=== PATIENT | female | born 1995 | race Caucasian/White ===

== ENCOUNTER 2019-11-06 12:29 | Outpatient (CLI) | payer OTHER ==
[2019-11-06 13:33] LABS: APPEARANCE,URINE CLEAR; BILIRUBIN,URINE NEGATIVE (NEGATIVE); COLOR,URINE YELLOW; GLUCOSE, URINE NEGATIVE (NEGATIVE); KETONES,URINE NEGATIVE (NEGATIVE); LEUKOCYTE ESTERASE,URINE NEGATIVE (NEGATIVE); NITRITE,URINE NEGATIVE (NEGATIVE); PROTEIN,URINE NEGATIVE (NEGATIVE); URINE SPECIFIC GRAVITY 1.009; UROBILINOGEN,URINE NEGATIVE mg/dL (<2.0)
[2019-11-06 13:55] LABS: URINE AMPHETAMINES SCREEN NEGATIVE; URINE BARBITURATES SCREEN NEGATIVE; URINE BENZODIAZEPINES SCREEN NEGATIVE; URINE COCAINE SCREEN NEGATIVE; URINE MARIJUANA (THC) SCREEN NEGATIVE; URINE METHADONE SCREEN NEGATIVE; URINE PHENCYCLIDINE SCREEN NEGATIVE
== END 2019-11-06 13:40 | disposition home or self-care (01) ==
LOC: LC 12:29
PROVIDERS: ATTEND Obstetrics & Gynecology
PROC: 4A1HXCZ Monitoring of Products of Conception, Cardiac Rate, External Approach (ICD-10-PCS; principal; 2019-11-06)
DX: O36.8130 Decreased fetal movements, third trimester, not applicable or unspecified (principal); Z3A.36 36 weeks gestation of pregnancy
CPT/HCPCS: 59025; 80307; 81001

== ENCOUNTER 2019-11-22 04:52 | Inpatient (IN) | payer OTHER ==
[2019-11-15 11:47] LABS: ABSOLUTE EOSINOPHILS # (AUTO) 0.1 10^3/uL (0.0-0.6); ABSOLUTE LYMPHOCYTES (AUTO) 2.2 10^3/uL (0.5-4.7); ABSOLUTE MONOCYTES (AUTO) 0.6 10^3/uL (0.1-1.4); ABSOLUTE NEUT (AUTO) 8.1 10^3/uL (1.7-8.2); BASOPHILS % (AUTO) 0.3 % (0-2); EOSINOPHILS % (AUTO) 1.2 % (0-6); HEMATOCRIT 29.2 % (36.0-47.0); HEMOGLOBIN 9.3 g/dL (12.0-15.5); LYMPHOCYTES % (AUTO) 20.1 % (13-45); MEAN CORPUSCULAR HEMOGLOBIN 22.3 pg (27.0-33.4); MEAN CORPUSCULAR HGB CONC 31.8 g/dL (32.0-36.0); MEAN CORPUSCULAR VOLUME 70 fl (80-97); MONOCYTES % (AUTO) 5.4 % (3-13); PLATELET COUNT 367 10^3/uL (150-450); RED BLOOD COUNT 4.15 10^6/uL (3.72-5.28); RED CELL DISTRIBUTION WIDTH 16.2 % (11.5-14.0); TOTAL CELLS COUNTED % (AUTO) 100 %; WHITE BLOOD COUNT 11.1 10^3/uL (4.0-10.5)
[2019-11-15 11:54] LABS: APPEARANCE,URINE SLIGHTLY-CLOUDY; BILIRUBIN,URINE NEGATIVE (NEGATIVE); COLOR,URINE YELLOW; GLUCOSE, URINE NEGATIVE (NEGATIVE); KETONES,URINE NEGATIVE (NEGATIVE); LEUKOCYTE ESTERASE,URINE TRACE (NEGATIVE); NITRITE,URINE NEGATIVE (NEGATIVE); PROTEIN,URINE NEGATIVE (NEGATIVE); URINE SPECIFIC GRAVITY 1.016; UROBILINOGEN,URINE NEGATIVE mg/dL (<2.0)
[2019-11-15 12:23] LABS: URINE AMPHETAMINES SCREEN NEGATIVE; URINE BARBITURATES SCREEN NEGATIVE; URINE BENZODIAZEPINES SCREEN NEGATIVE; URINE COCAINE SCREEN NEGATIVE; URINE MARIJUANA (THC) SCREEN NEGATIVE; URINE METHADONE SCREEN NEGATIVE; URINE PHENCYCLIDINE SCREEN NEGATIVE
[2019-11-22] MEDS ORDERED: CEFAZOLIN 2 GM/D5W RTU 2 GM/50 ML RTUPB IV PRN (05:28)
[2019-11-22] MEDS ORDERED: RINGERS SOLUTION,LACTATED 1,000 ML IV ONE (05:30)
[2019-11-22] MEDS ORDERED: FENTANYL CITRATE INJ/PF 100 MCG/2 ML AMPUL ONE (06:19)
[2019-11-22] MEDS ORDERED: MIDAZOLAM 2 MG/2 ML INJ ONE (06:19)
[2019-11-22] MEDS ORDERED: OXYTOCIN 10 UNIT/ML VIAL ONE (06:19)
[2019-11-22] MEDS ORDERED: EPHEDRINE SULFATE INJ 50 MG/1 ML AMPULE ONE (06:20)
[2019-11-22] MEDS ORDERED: ONDANSETRON HCL INJ/PF 4 MG/2 ML SDV ONE (06:20)
[2019-11-22] MEDS ORDERED: PROPOFOL INJ 200 MG/20 ML VIAL IV ONE (06:20)
[2019-11-22] MEDS ORDERED: LIDOCAINE 0.5% INJ-PF (5 MG/ML) 50 ML SDV ONE (06:24)
[2019-11-22] MEDS ORDERED: PHENYLEPHRINE HCL INJ/PF 10 MG/1 ML SDV ONE (06:43)
[2019-11-22] MEDS ORDERED: OXYTOCIN/NORMAL SALINE 20 UNIT/1,000 ML RTUINJ ONE (06:43)
[2019-11-22] MEDS ORDERED: CEFTRIAXONE 2 GM/D5W RTU 0 GM/0 ML RTUPB IV ONE (06:55)
[2019-11-22] MEDS ORDERED: ONDANSETRON HCL INJ/PF 4 MG/2 ML SDV IV PRN ×2 (06:57→13:27)
[2019-11-22] MEDS ORDERED: FENTANYL CITRATE INJ/PF 100 MCG/2 ML AMPUL IV PRN ×3 (06:57)
[2019-11-22] MEDS ORDERED: DIPHENHYDRAMINE HCL 50 MG/ML VIAL IV PRN (06:57)
[2019-11-22] MEDS ORDERED: PROMETHAZINE HCL INJ 25 MG/1 ML VIAL IV PRN ×3 (06:57→09:07)
[2019-11-22] MEDS ORDERED: MEPERIDINE HCL/PF INJ 25 MG/1 ML DISP.SYRIN IV PRN (06:57)
[2019-11-22] MEDS ORDERED: MORPHINE SULFATE 10 MG/ML INJ IV PRN (06:57)
[2019-11-22] MEDS ORDERED: CEFAZOLIN 1 GM/D5W RTU 2 GM/100 ML RTUPB IV ONE (06:58)
[2019-11-22] MEDS ORDERED: RINGERS SOLUTION,LACTATED 1,000 ML IV PRN (09:07)
[2019-11-22] MEDS ORDERED: ACETAMINOPHEN 325 MG TABLET PO PRN (09:07)
[2019-11-22] MEDS ORDERED: OXYTOCIN/NORMAL SALINE 20 UNIT/1,000 ML RTUINJ IV PRN (09:07)
[2019-11-22] MEDS ORDERED: SIMETHICONE 80 MG TAB.CHEW PO PRN (09:07)
[2019-11-22] MEDS ORDERED: DIPH/PERTUSS(ACELL)/TETANUS VAC/PF 0.5 ML SYR (>=10YO) IM PRN (09:07)
[2019-11-22] MEDS ORDERED: MEASLES,MUMPS&RUBELLA VACC/PF 0.5 ML VIAL SUBCUT PRN (09:07)
[2019-11-22] MEDS ORDERED: ACETAMINOPHEN 1,000 MG/100 ML RTUPB IV PRN (09:07)
[2019-11-22] MEDS ORDERED: HYDROMORPHONE HCL INJ/PF 2 MG/ML AMPULE IV PRN (09:07)
--- NOTE | 2019-11-22 09:11 | Operative Report ---
Operative Report DATE OF SURGERY: 11/22/19 PREOPERATIVE DIAGNOSIS: Patient is presenting for repeat and tubal li gation POSTOPERATIVE DIAGNOSIS: Same OPERATION: Repeat via low transverse uterine incision tubal ligation using Filshie clips SURGEON: MARILEE ALAMO ANESTHESIA: Spinal TISSUE REMOVED OR ALTERED: Placenta COMPLICATIONS: None ESTIMATED BLOOD LOSS: 250 INTRAOPERATIVE FINDINGS: Scarring at the low uterine segment noted otherwise normal uterus tubes ovaries. Viable male . PROCEDURE: Patient was taken to the OR and placed in supine position after her spinal anesthesia. She is prepared and draped in sterile fashion. Gr was placed for drainage of the bladder. Low transverse incision was made and carried down the level of the fascia. The fascial incision was made with knife and extended bilaterally with curved Guillen scissors. The fascia was off the rectus muscles using sharp and blunt dissection. There was some dense scarring at this area. The rectus muscles are in the midline. The peritoneum was entered without incident. Bladder blade was placed in uterine segment was identified. A low transverse incision was made creating a bladder flap. Bladder blade was placed low transverse uterine incision was made with the knife and extended with fingertips. The baby was delivered with some fundal pressure. Mouth and nose were suctioned free. The cord is doubly clamped and cut. Baby is passed off to the repairer kiln car in attendance. The placenta was manually extracted with trailing membranes. The uterus was externalized wrapped in a moist lap sponge. Uterine contents wiped free. Uterus was closed with a runni ng locking layer of 0 chromic suture using the second layer to imbricate the first completing a double layer closure of the uterus. The serosa was closed with a running 2-0 chromic stitch. Filshie clips were placed on the mid isthmic portion of each fallopian tube. The pelvis was irrigated and suctioned free of fluid the uterus was replaced in the abdomen. The abdominal wall peritoneum was closed with running 2-0 chromic stitch. Fascia was closed with a running 0 Vicryl in 2 segments. Teri's layer was brought together with 0 plain gut stitch and the skin was closed with running subcuticular 4-0 undyed Vicryl stitch. The wound was dressed mother and baby did well.
[2019-11-22] MEDS ORDERED: MORPHINE SULFATE 10 MG/ML INJ ONE (09:36)
[2019-11-22] MEDS ORDERED: ACETAMINOPHEN 1,000 MG/100 ML RTUPB IV ONE (09:36)
[2019-11-22] MEDS ORDERED: MEPERIDINE HCL/PF INJ 25 MG/1 ML DISP.SYRIN ONE (09:46)
[2019-11-22] MEDS: PRENATAL VITAMIN W DHA CAPSULE PO SCH (10:27)
[2019-11-22] MEDS: DOCUSATE SODIUM 100 MG CAPSULE PO SCH ×2 (10:27→17:27)
[2019-11-22] MEDS ORDERED: HYDROMORPHONE HCL INJ/PF 2 MG/ML AMPULE ONE (10:33)
[2019-11-22] MEDS ORDERED: IBUPROFEN 800 MG TABLET PO SCH (12:00)
[2019-11-22] MEDS: KETOROLAC TROMETHAMINE INJ/PF 30 MG/1 ML SDV IV SCH ×2 (14:24→21:11)
[2019-11-22] MEDS: OXYCODONE-ACETAMINOPHEN 5-325 MG TABLET PO PRN ×2 (18:19→20:20)
[2019-11-23] MEDS: OXYCODONE-ACETAMINOPHEN 5-325 MG TABLET PO PRN ×4 (02:29→20:15)
[2019-11-23] MEDS ORDERED: LACTATED RINGERS 1000 ML IV PRN (05:00)
[2019-11-23] MEDS ORDERED: LIDOCAINE 0.5% INJ-PF (5 MG/ML) 50 ML SDV SUBCUT PRN (05:00)
[2019-11-23] MEDS: KETOROLAC TROMETHAMINE INJ/PF 30 MG/1 ML SDV IV SCH (05:12)
[2019-11-23 06:33] LABS: HEMATOCRIT 26.4 % (36.0-47.0); HEMOGLOBIN 8.3 g/dL (12.0-15.5); MEAN CORPUSCULAR HEMOGLOBIN 21.7 pg (27.0-33.4); MEAN CORPUSCULAR HGB CONC 31.5 g/dL (32.0-36.0); MEAN CORPUSCULAR VOLUME 69 fl (80-97); PLATELET COUNT 285 10^3/uL (150-450); RED BLOOD COUNT 3.84 10^6/uL (3.72-5.28); RED CELL DISTRIBUTION WIDTH 16.7 % (11.5-14.0); WHITE BLOOD COUNT 15.7 10^3/uL (4.0-10.5)
[2019-11-23] MEDS: DOCUSATE SODIUM 100 MG CAPSULE PO SCH ×2 (10:06→17:43)
[2019-11-23] MEDS: PRENATAL VITAMIN W DHA CAPSULE PO SCH (10:06)
--- NOTE | 2019-11-23 11:05 | PDOC PROGRESS REPORT ---
Subjective-OB Progress Note for:: 11/23/19 - POD #1, pt doing well, no complaints. s/p Rpt C- section w/ BTL. B+ Rubella Immune. up voiding Physical Exam (OB) Vital Signs: Temp Pulse Resp BP Pulse Ox 97.2 F 83 18 112/58 L 99 11/23/19 07:36 11/23/19 07:36 11/23/19 04:14 11/23/19 07:36 11/23/19 07:36 Intake & Output 11/22/19 11/23/19 11/24/19 06:59 06:59 06:59 Intake Total 480 260 Output Total 4500 Balance -4020 260 Weight 81.193 kg - General General Appearance: Appears well, Alert In distress: None - PIH/Pre-Eclampsia Headache: Absent Epigastric Pain: No Visual Changes: No - Dressing Removed: No Incision: Dressing Closure Type: opsite - Lochia Lochia Amount: Scant < 10 ml Lochia Color: Rubra/Red - Abdomen Description: Tender, Soft Hernia Present: No Fundal Description: Firm, Midline Fundal Height: u/u - u/2 - Respiratory Respiratory Status: No respiratory distress Breath sounds: Clear - Cardiovascular Rhythm: Regular Heart Sounds: Normal auscultation - Abdominal Distension: No distension Tenderness: Nontender - Genitourinary Genitourinary Note: voiding - Extremities Upper extremity: Normal inspection Lower extremities: Normal inspection - Neurological Cognition: Normal Orientation: AAOx4 Objective-Diagnostic Laboratory: 11/23/19 06:17 11/23/19 06:17 WBC 15.7 H RBC 3.84 Hgb 8.3 L Hct 26.4 L MCV 69 L MCH 21.7 L MCHC 31.5 L RDW 16.7 H Plt Count 285 Assessment and Plan(PN) - Assessment and Plan (1) S/P repeat low transverse Is this a current diagnosis for this admission?: Yes (2) Tubal ligation status Is this a current diagnosis for this admission?: Yes (3) Acute blood loss as cause of postoperative anemia Is this a current diagnosis for this admission?: Yes Plan:: Routine PP orders, give IV Iron today, ambulation encouraged - Time Spent with Patient Time with patient: Less than 15 minutes Medications reviewed and adjusted accordingly: Yes - Disposition Anticipated Discharge: Home Within: within 48 hours
[2019-11-23] MEDS ORDERED: IRON SUCROSE COMPLEX INJ/PF 100 MG/5 ML SDV IV ONE (11:30)
[2019-11-23] MEDS: IBUPROFEN 800 MG TABLET PO SCH ×2 (11:42→17:39)
[2019-11-24] MEDS: IBUPROFEN 800 MG TABLET PO SCH ×3 (05:36→13:12)
[2019-11-24] MEDS: OXYCODONE-ACETAMINOPHEN 5-325 MG TABLET PO PRN ×2 (05:40→13:12)
[2019-11-24] MEDS: DOCUSATE SODIUM 100 MG CAPSULE PO SCH (09:44)
[2019-11-24] MEDS: PRENATAL VITAMIN W DHA CAPSULE PO SCH (09:47)
[2019-11-24] MEDS ORDERED: FERROUS SULFATE 325 MG TABLET PO SCH (10:00)
--- NOTE | 2019-11-24 10:55 | PDOC DISCHARGE SUMMARY ---
Impression - Admit/DC Date/PCP Admission Date/Primary Care Provider: 11/22/19 04:52 MARILEE ALAMO MD Discharge Date: 11/24/19 - POD #2, doing well, desires to go home today - Discharge Diagnosis (1) S/P repeat low transverse Is this a current diagnosis for this admission?: Yes (2) Tubal ligation status Is this a current diagnosis for this admission?: Yes (3) Acute blood loss as cause of postoperative anemia Is this a current diagnosis for this admission?: Yes - Additional Information Resuscitation Status: Full Code Discharge Diet: As Tolerated, Regular Discharge Activity: Activity As Tolerated, No Driving, No Lifting Over 10 Pounds, Pelvic Rest [facility] [Provider [facility]] Prescriptions: Ibuprofen [Motrin 800 mg Tablet] 800 mg PO Q6 #60 tablet Oxycodone HCl/Acetaminophen [Percocet 5-325 mg Tablet] 1 tab PO Q4HP PRN #30 tablet PRN Reason: Pain Scale Of 4 Home Medications: Iron,Carb/Vit C/Vit B12/Folic [Iron 100 Plus Tablet] 1 each PO DAILY 11/15/19 Prenat 115/Iron Fum/Folic/Dss [ 19 Tablet] 1 each PO DAILY 11/15/19 Ibuprofen [Motrin 800 mg Tablet] 800 mg PO Q6 #60 tablet 11/24/19 Oxycodone HCl/Acetaminophen [Percocet 5-325 mg Tablet] 1 tab PO Q4HP PRN #30 tablet 11/24/19 HPI Reason(s) for Admission: Ceasarean Section-Repeat Intrapartum Procedure(s): : Low Cervical, Transverse, Tubal Ligation Hospital Course Hospital Course: routine Results Laboratory Results: WBC 15.7 10^3/uL (4.0-10.5) H 11/23/19 06:17 RBC 3.84 10^6/uL (3.72-5.28) 11/23/19 06:17 Hgb 8.3 g/dL (12.0-15.5) L 11/23/19 06:17 Hct 26.4 % (36.0-47.0) L 11/23/19 06:17 MCV 69 fl (80-97) L 11/23/19 06:17 MCH 21.7 pg (27.0-33.4) L 11/23/19 06:17 MCHC 31.5 g/dL (32.0-36.0) L 11/23/19 06:17 RDW 16.7 % (11.5-14.0) H 11/23/19 06:17 Plt Count 285 10^3/uL (150-450) 11/23/19 06:17 Lymph % (Auto) 20.1 % (13-45) 11/15/19 11:15 Sanders % (Auto) 5.4 % (3-13) 11/15/19 11:15 Eos % (Auto) 1.2 % (0-6) 11/15/19 11:15 Baso % (Auto) 0.3 % (0-2) 11/15/19 11:15 Absolute Neuts (auto) 8.1 10^3/uL (1.7-8.2) 11/15/19 11:15 Absolute Lymphs (auto) 2.2 10^3/uL (0.5-4.7) 11/15/19 11:15 Absolute Monos (auto) 0.6 10^3/uL (0.1-1.4) 11/15/19 11:15 Absolute Eos (auto) 0.1 10^3/uL (0.0-0.6) 11/15/19 11:15 Absolute Basos (auto) 0.0 10^3/uL (0.0-0.2) 11/15/19 11:15 Seg Neutrophils % 73.0 % (42-78) 11/15/19 11:15 Urine Color YELLOW 11/15/19 11:05 Urine Appearance SLIGHTLY-CLOUDY 11/15/19 11:05 Urine pH 6.0 (5.0-9.0) 11/15/19 11:05 Ur Specific [place] 1.016 11/15/19 11:05 Urine Protein NEGATIVE mg/dL (NEGATIVE) 11/15/19 11:05 Urine Glucose (UA) NEGATIVE mg/dL (NEGATIVE) 11/15/19 11:05 Urine Ketones NEGATIVE mg/dL (NEGATIVE) 11/15/19 11:05 Urine Blood NEGATIVE (NEGATIVE) 11/15/19 11:05 Urine Nitrite NEGATIVE (NEGATIVE) 11/15/19 11:05 Urine Bilirubin NEGATIVE (NEGATIVE) 11/15/19 11:05 Urine Urobilinogen NEGATIVE mg/dL (<2.0) 11/15/19 11:05 Ur Leukocyte Esterase TRACE (NEGATIVE) H 11/15/19 11:05 Urine WBC (Auto) 1 /HPF 11/15/19 11:05 Urine RBC (Auto) 0 /HPF 11/15/19 11:05 Urine Bacteria (Auto) TRACE /HPF 11/15/19 11:05 Squamous Epi Cells Auto 2 /HPF 11/15/19 11:05 Urine Mucus (Auto) FEW /LPF 11/15/19 11:05 Urine Ascorbic Acid NEGATIVE (NEGATIVE) 11/15/19 11:05 Urine Opiates Screen NEGATIVE 11/15/19 11:05 Urine Methadone Screen NEGATIVE 11/15/19 11:05 Ur Barbiturates Screen NEGATIVE 11/15/19 11:05 Ur Phencyclidine Scrn NEGATIVE 11/15/19 11:05 Ur Amphetamines Screen NEGATIVE 11/15/19 11:05 U Benzodiazepines Scrn NEGATIVE 11/15/19 11:05 Urine Cocaine Screen NEGATIVE 11/15/19 11:05 U Marijuana (THC) Screen NEGATIVE 11/15/19 11:05 Blood Type B POSITIVE 11/21/19 14:45 Antibody Screen NEGATIVE 11/21/19 14:45 Plan Plan of Treatment: d/c to home, F/up with [facility] in one week for incision check
[2019-11-24 11:27] VITALS: BP 103/60
== END 2019-11-24 13:35 | disposition home or self-care (01) | DRG 785 ==
LOC: 2S 04:52
PROVIDERS: ADMIT Obstetrics & Gynecology; ATTEND Obstetrics & Gynecology
PROC: 0UL70CZ Occlusion of Bilateral Fallopian Tubes with Extraluminal Device, Open Approach (ICD-10-PCS; 2019-11-22)
PROC: 10D00Z1 Extraction of Products of Conception, Low, Open Approach (ICD-10-PCS; principal; 2019-11-22 07:45)
DX: O34.211 Maternal care for low transverse scar from previous cesarean delivery (principal); O99.02 Anemia complicating childbirth; Z30.2 Encounter for sterilization; Z37.0 Single live birth; D64.9 Anemia, unspecified; O99.334 Smoking (tobacco) complicating childbirth; F17.200 Nicotine dependence, unspecified, uncomplicated
CPT/HCPCS: 36415; 59025; 80307; 81001; 85025; 85027; 86850; 86900; 86901; 94799; J0131; J1170; J1885; J2175; J2250; J2270; J2370; J2405; J2590; J2704; J3010; J3490; J7120

== ENCOUNTER 2019-12-16 01:55 | Emergency (ER) | payer OTHER ==
[2019-12-16] MEDS ORDERED: IBUPROFEN 600 MG TABLET PO ONE (02:50)
[2019-12-16] MEDS ORDERED: ACETAMINOPHEN 325 MG TABLET PO ONE (02:50)
[2019-12-16] MEDS ORDERED: NORMAL SALINE 1000 ML 1,000 ML IV ONE ×2 (02:51→05:38)
[2019-12-16] MEDS ORDERED: ONDANSETRON HCL INJ/PF 4 MG/2 ML SDV IV ONE (02:51)
--- NOTE | 2019-12-16 02:55 | ER Document Report ---
ED General - General Chief Complaint: Post Surgical Pain Stated Complaint: POST OP PAIN/BLEEDING/NAUSEA Time Seen by Provider: 12/16/19 02:38 Primary Care Provider: MARILEE TERESA MD [ACTIVE STAFF] - 12/18/19 Notes: Patient is a 24-year-old female that comes emergency department for chief complaint of left-sided breast pain, she states that her left breast feels swollen, hot, and very tender, this is worsened over the past day, she is also developed chills and feels like she has been running a fever tonight. Patient also reports burning and discomfort with urination. She does report nausea but denies vomiting. She also reports generalized body aches and pain with cramping over to the lower abdomen. She also states that over the past day she started bleeding again, going through 3 pads over the day. Patient is 3 weeks postop C- section with Dr. Tony Teresa, currently breast-feeding. She denies dizziness, chest pain, shortness of breath, abnormal discharge from the breast, abnormal discharge or heavy bleeding from the postop wound. TRAVEL OUTSIDE OF THE [place] IN LAST 30 DAYS: No - Related Data Allergies/Adverse Reactions: No Known Allergies Allergy (Unverified 11/06/19 12:43) Home Medications: prenatals. capsules Past Medical History - General Information source: Patient - Social History Smoking Status: Current Every Day Smoker Frequency of alcohol use: None Drug Abuse: None Lives with: Family Family History: Reviewed & Not Pertinent Patient has suicidal ideation: No Patient has homicidal ideation: No - Past Medical History Cardiac Medical History: Denies: Hx Hypertension, Hx Pulmonary Embolism, Hx Heart Murmur Pulmonary Medical History: Denies: Hx Asthma, Hx Sleep Apnea, Hx Tuberculosis Endocrine Medical History: Denies: Hx Hyperthyroidism, Hx Hypothyroidism Renal/ Medical History: Denies: Hx Kidney Stones, Hx Ovarian Cysts, Hx Pelvic Inflammatory Disease Malignancy Medical History: Denies: Hx Breast Cancer, Hx Cervical Cancer, Hx Ovarian Cancer GI Medical History: Reports: Hx Gastroesophageal Reflux Disease - . Denies: Hx Hiatal Hernia, Hx Ulcer Musculoskeletal Medical History: Denies Hx Fibromyalgia Psychiatric Medical History: Denies: Hx Bipolar Disorder, Hx Depression, Hx Post Traumatic Stress Disorder, Hx Schizophrenia Traumatic Medical History: Denies: Hx Fractures Infectious Medical History: Denies: Hx HIV Past Surgical History: Reports: Hx Section - Immunizations Immunizations up to date: Yes Hx Diphtheria, Pertussis, Tetanus Vaccination: Yes Review of Systems - Review of Systems Constitutional: See HPI EENT: No symptoms reported Cardiovascular: No symptoms reported Respiratory: No symptoms reported Gastrointestinal: See HPI Genitourinary: See HPI Female Genitourinary: See HPI Musculoskeletal: No symptoms reported Skin: See HPI Hematologic/Lymphatic: No symptoms reported Neurological/Psychological: No symptoms reported Physical Exam - Vital signs Vitals: Temp Pulse Resp BP Pulse Ox 100.0 F 122 H 18 133/108 H 97 12/16/19 01:59 12/16/19 01:59 12/16/19 01:59 12/16/19 01:59 12/16/19 01:59 - Notes Notes: GENERAL: Alert and interactive, mildly uncomfortable HEAD: Normocephalic, atraumatic. EYES: Pupils equal, round, and reactive to light. Extraocular movements intact. ENT: Oral mucosa moist, tongue midline. Oropharynx unremarkable. Airway patent. NECK: Full range of motion. Supple. Trachea midline. No lymphadenopathy. LUNGS: Clear to auscultation bilaterally, no wheezes, rales, or rhonchi. No respiratory distress. Non-tender chest wall. HEART: Borderline tachycardia, normal rhythm, no murmur ABDOMEN: scar unremarkable with no tenderness, bleeding, discharge, or swelling noted. No discoloration around the area. There is some mild tenderness over the general lower abdomen, mid upper abdomen is benign and nontender. GENITOURINARY: Some dried blood in the diaper/pad. Exam performed with Marilee BARCLAY at bedside. EXTREMITIES: Moves all 4 extremities spontaneously. No edema, normal radial and dorsalis pedis pulses bilaterally. No cyanosis. BACK: no cervical, thoracic, lumbar midline tenderness. No saddle anesthesia, normal distal neurovascular exam. Moves all extremities in full range of motion. NEUROLOGICAL: Alert and oriented x3. Normal speech. Cranial nerves II through XII grossly intact. Strength 5/5 in all extremities. PSYCH: Normal affect, normal mood. SKIN: Left breast with what appears to be plugged ducts over the superior aspect of the breast just above the nipple, there is erythema, warmth, tenderness. No induration or fluctuance noted. No discharge from the nipple. Unremarkable otherwise. Exam performed with Marilee BARCLAY at bedside. Course - Re-evaluation Re-evalutation: Patient appears uncomfortable and is slightly ill-appearing on initial evaluation. She is tachycardic, has a temperature of 100 F, however her abdomen is soft and benign, her respiratory exam is reassuring, and she does have an exam very consistent with mastitis on the left breast. No abscess is noted. Patient treated with Tylenol, ibuprofen, IV fluids, and then Reglan on re evaluation. Afterwards symptoms completely resolved, patient sitting up, smiling, well-appearing. CBC shows mild leukocytosis at 11,000 with elevation of neutrophils but no bandemia. Hemoglobin is reassuring at 11.4, microcytic anemia. Urinalysis showing possible developing infection, this will be covered along with the mastitis was using Keflex. Cultures are pending. Reevaluation of vital signs shows resolution of tachycardia, blood pressure is 90/60, I discussed with patient. Patient states this is her normal blood pressure, she was able to ambulate without dizziness. I did discuss potentially doing an ultrasound because of her bleeding after , after discussion this was deferred, I have low suspicion of retained products at this point, I suspect the fever source is from her mastitis based on her exam and history. Based on her benign abdomen I also very low suspicion of abscess or other intra- abdominal postsurgical pathology. Patient currently asymptomatic, she states she will follow closely with [facility]. Discussed return precautions. Patient states understanding and agreement. Stable and well-appearing at time of discharge. - Vital Signs Vital signs: Temp Pulse Resp BP Pulse Ox 98.4 F 65 16 90/60 L 98 12/16/19 06:30 12/16/19 06:30 12/16/19 06:30 12/16/19 06:30 12/16/19 06:30 - Laboratory Result Diagrams: 12/16/19 03:04 12/16/19 03:04 Laboratory results interpreted by me: 12/16/19 12/16/19 12/16/19 03:04 03:04 05:45 WBC 11.3 H Hgb 11.4 L Hct 35.8 L MCV 74 L D MCH 23.5 L MCHC 31.9 L RDW 23.7 H Lymph % (Auto) 8.9 L Absolute Neuts (auto) 9.8 H Seg Neutrophils % 87.1 H Chloride 109 H Carbon Dioxide 21 L Ur Leukocyte Esterase SMALL H Discharge - Discharge Clinical Impression: Mastitis, Body aches, Vaginal bleeding Fever Qualifiers: Fever type: unspecified Qualified Code(s): R50.9 - Fever, unspecified Condition: Stable Disposition: HOME, SELF-CARE Additional Instructions: Your evaluation indicates mastitis, take the Keflex antibiotics as prescribed for this infection, continue to breast-feed or pump to help clear the ducts to help symptoms resolve faster. You can also take up to 600 mg of ibuprofen and 1000 g of Tylenol every 6 hours for fevers, chills, body aches. Follow closely with [facility] for additional evaluation including for the vaginal bleeding, your hemoglobin today was reassuring, this will need to be rechecked. Return if you worsen including vomiting, continued spiking fevers, severe/heavy bleeding with dizziness, passing out, severe worsening abdominal pain, or any other concerning symptoms. Prescriptions: Cephalexin Monohydrate [Keflex 500 mg Capsule] 500 mg PO QID #28 capsule Metoclopramide HCl [Reglan] 5 mg PO ASDIR PRN #30 tablet PRN Reason: Referrals: MARILEE TERESA MD [ACTIVE STAFF] - 12/18/19
[2019-12-16] MEDS ORDERED: HYDROCHLOROTHIAZIDE 12.5 MG TABLET PO ONE (03:21)
[2019-12-16] MEDS ORDERED: ENALAPRIL MALEATE 5 MG TABLET PO ONE (03:23)
[2019-12-16 03:32] LABS: ABSOLUTE MONOCYTES (AUTO) 0.4 10^3/uL (0.1-1.4); ABSOLUTE NEUT (AUTO) 9.8 10^3/uL (1.7-8.2); BASOPHILS % (AUTO) 0.1 % (0-2); EOSINOPHILS % (AUTO) 0.2 % (0-6); HEMATOCRIT 35.8 % (36.0-47.0); HEMOGLOBIN 11.4 g/dL (12.0-15.5); LYMPHOCYTES % (AUTO) 8.9 % (13-45); MEAN CORPUSCULAR HEMOGLOBIN 23.5 pg (27.0-33.4); MEAN CORPUSCULAR HGB CONC 31.9 g/dL (32.0-36.0); MONOCYTES % (AUTO) 3.7 % (3-13); PLATELET COUNT 384 10^3/uL (150-450); RED BLOOD COUNT 4.87 10^6/uL (3.72-5.28); RED CELL DISTRIBUTION WIDTH 23.7 % (11.5-14.0); SEGMENTED NEUTROPHILS % (AUTO) 87.1 % (42-78); TOTAL CELLS COUNTED % (AUTO) 100 %; WHITE BLOOD COUNT 11.3 10^3/uL (4.0-10.5)
[2019-12-16 03:33] LABS: ALBUMIN 4.2 g/dL (3.5-5.0); ALKALINE PHOSPHATASE 106 U/L (38-126); ANION GAP 7 (5-19); ASPARTATE AMINO TRANSFERASE 24 U/L (14-36); BILIRUBIN,TOTAL 1.1 mg/dL (0.2-1.3); BLOOD UREA NITROGEN 12 mg/dL (7-20); CALCIUM 9.3 mg/dL (8.4-10.2); CARBON DIOXIDE 21 mmol/L (22-30); CHLORIDE 109 mmol/L (98-107); GLUCOSE 105 mg/dL (75-110); POTASSIUM 4.4 mmol/L (3.6-5.0); TOTAL PROTEIN 7.5 g/dL (6.3-8.2)
[2019-12-16 03:42] LABS: MEAN CORPUSCULAR VOLUME 74 fl (80-97)
[2019-12-16] MEDS ORDERED: CEPHALEXIN 500 MG CAPSULE PO ONE (04:17)
[2019-12-16] MEDS ORDERED: METOCLOPRAMIDE HCL INJ/PF 10 MG/2 ML SDV IV ONE (04:38)
[2019-12-16 06:06] LABS: APPEARANCE,URINE SLIGHTLY-CLOUDY; BILIRUBIN,URINE NEGATIVE (NEGATIVE); COLOR,URINE YELLOW; GLUCOSE, URINE NEGATIVE (NEGATIVE); KETONES,URINE NEGATIVE (NEGATIVE); LEUKOCYTE ESTERASE,URINE SMALL (NEGATIVE); NITRITE,URINE NEGATIVE (NEGATIVE); PROTEIN,URINE NEGATIVE (NEGATIVE); URINE SPECIFIC GRAVITY 1.019; UROBILINOGEN,URINE NEGATIVE mg/dL (<2.0)
[2019-12-16 06:32] VITALS: BP 90/60
== END 2019-12-16 06:59 | disposition home or self-care (01) ==
LOC: ER 01:55
DX: O91.22 Nonpurulent mastitis associated with the puerperium (principal); O72.2 Delayed and secondary postpartum hemorrhage; O86.4 Pyrexia of unknown origin following delivery; O99.13 Other diseases of the blood and blood-forming organs and certain disorders involving the immune mechanism complicating the puerperium; D72.828 Other elevated white blood cell count; O90.89 Other complications of the puerperium, not elsewhere classified; R30.0 Dysuria; R11.0 Nausea; R10.30 Lower abdominal pain, unspecified; R00.0 Tachycardia, unspecified; O90.81 Anemia of the puerperium; D50.9 Iron deficiency anemia, unspecified; O99.335 Smoking (tobacco) complicating the puerperium; F17.200 Nicotine dependence, unspecified, uncomplicated; Z79.899 Other long term (current) drug therapy; Z98.890 Other specified postprocedural states
CPT/HCPCS: 99283; 96361; 96374; 36415; 87040; 87086; 85025; 80053; 81001; J2765; J7030